=== PATIENT | female | born 1990 | race Caucasian/White ===

== ENCOUNTER 2025-07-30 12:38 | Outpatient (CLI) | payer MEDICAID ==
--- NOTE | 2025-07-30 13:40 | RADIOLOGY REPORT ---
CT CT SINUS Indication: DEVIATED NASAL SEPTUM EXAM DATE: 07/30/2025 12:40 PM COMPARISON: None TECHNIQUE: CT of the paranasal sinuses without intravenous contrast. RADIATION DOSE: CTDIvol: 53 mGy, DLP: 601 mGy*cm FINDINGS: The mastoids are well pneumatized. The nasal septum is minimally deviated to the left. Frontal sinus well pneumatized. Ethmoid, sphenoid sinuses well pneumatized. Sphenoid sinus septum deviated to the right. Complete opacification left maxillary sinus. Occlusion of the left maxillary infundibulum. Right maxillary sinus well pneumatized. The orbits and retrobulbar spaces are unremarkable. IMPRESSION: Minimal deviation of the nasal septum to the left. Complete opacification left maxillary sinus with occlusion of the left maxillary infundibulum
== END 2025-07-30 23:59 | disposition home or self-care (01) ==
LOC: RAD 12:38
PROVIDERS: ATTEND Family Medicine
DX: J32.0 Chronic maxillary sinusitis (principal); J34.2 Deviated nasal septum
CPT/HCPCS: 70486